=== PATIENT | male | born 1945 | race Caucasian/White ===

== ENCOUNTER 2017-06-18 04:03 | Observation (INO) | payer OTHER, MEDICARE ==
[~2017-06-18] VITALS: Ht 182.9 cm; Wt 130.2 kg
[2017-06-18 06:55] LABS: EOSINOPHIL (%) 7.3 % (0-5); EOSINOPHIL COUNT 0.4 K/uL (0-0.3); HEMATOCRIT 33.5 % (38.0-50.0); IMMATURE GRANULOCYTE (%) 0.3 % (0.0-0.7); INSTRUMENT ABS NEUTROPHIL CT 3.6 K/uL; LYMPHOCYTE COUNT 1.2 K/uL (1.0-2.8); MCHC 32.2 G/DL (30.0-36.0); MCV 99.4 FL (86-99); MEAN PLAT.VOLUME 9.1 uM^3 (9.0-12.4); MONOCYTE (%) 8.9 % (3-12); MONOCYTE COUNT 0.5 K/uL (0-0.8); NEUTROPHIL (%) 61.9 % (45-76); NEUTROPHIL COUNT 3.6 K/uL (1.8-6.4); PLATELET COUNT 210 K/uL (156-360); RBC DIS.WIDTH-CV 12.9 % (11.8-14.6); RBC DIS.WIDTH-SD 46.6 % (39-53); RED BLOOD COUNT 3.37 M/uL (4.00-5.50); WHITE BLOOD COUNT 5.7 K/uL (4.1-10.2)
[2017-06-18 07:31] LABS: ANION GAP 8 MEQ/L (2-14); CHLORIDE 106 MEQ/L (99-109); POTASSIUM 3.5 MEQ/L (3.7-5.4); SAMPLE HEMOLYSIS CHECK 0; SAMPLE ICTERIC CHECK 0; SAMPLE LIPEMIA CHECK 0; SODIUM 141 MEQ/L (136-147)
[2017-06-18 07:36] LABS: GFR ESTIMATE (CALCULATED) > 59 mL/min/; GLUCOSE 109 mg/dL (70-99); UREA NITROGEN (BUN) 21 mg/dL (9-23)
[2017-06-18] MEDS ORDERED: IBUPROFEN800 MG PO (09:27)
[2017-06-18] MEDS ORDERED: ATORVASTATIN CA40 MG PO (09:28)
[2017-06-18] MEDS ORDERED: LOPRESSOR25 MG PO (09:28)
[2017-06-18] MEDS ORDERED: HYDROCODON-ACE1 EAC8 PO (09:28)
[2017-06-18] MEDS ORDERED: LO-DOSE ASPIRIN81 M2 PO (09:29)
[2017-06-18] MEDS ORDERED: TRIAMTERENE-HC1 EACH PO (09:29)
[2017-06-18 11:17] VITALS: BP 137/65
[2017-06-18 15:57] VITALS: BP 131/61
[2017-06-19 00:19] VITALS: BP 129/60
[2017-06-19 04:00] VITALS: BP 137/63
[2017-06-19 05:23] LABS: HEMATOCRIT 35.3 % (38.0-50.0); MCH 31.4 PG (29.0-34.0); MCHC 31.4 G/DL (30.0-36.0); MCV 99.7 FL (86-99); MEAN PLAT.VOLUME 9.4 uM^3 (9.0-12.4); PLATELET COUNT 241 K/uL (156-360); RBC DIS.WIDTH-CV 12.7 % (11.8-14.6); RBC DIS.WIDTH-SD 47.1 % (39-53); RED BLOOD COUNT 3.54 M/uL (4.00-5.50); WHITE BLOOD COUNT 5.1 K/uL (4.1-10.2)
[2017-06-19 05:58] LABS: INTER. NORMALIZED RATIO 1.2; PROTHROMBIN TIME 13.5 SEC (10.2-12.9)
[2017-06-19 06:01] LABS: PTT 29.6 SEC (25-37)
[2017-06-19 06:02] LABS: ANION GAP 5 MEQ/L (2-14); CHLORIDE 109 MEQ/L (99-109); GFR ESTIMATE (CALCULATED) > 59 mL/min/; GLUCOSE 156 mg/dL (70-99); SAMPLE HEMOLYSIS CHECK 1; SAMPLE ICTERIC CHECK 0; SAMPLE LIPEMIA CHECK 0; SODIUM 142 MEQ/L (136-147); UREA NITROGEN (BUN) 18 mg/dL (9-23)
[2017-06-19 06:03] LABS: POTASSIUM 4.8 MEQ/L (3.7-5.4)
[2017-06-19 07:12] LABS: POTASSIUM 4.4 MEQ/L (3.7-5.4)
[2017-06-19 09:07] VITALS: BP 133/63
[2017-06-19 11:21] VITALS: BP 132/62
[2017-06-19] MEDS ORDERED: TAMSULOSIN HCL0.4 MG PO (14:09)
[2017-06-19] MEDS ORDERED: FINASTERIDE5 MG PO (14:10)
[2017-06-19 14:57] VITALS: BP 131/73
[2017-06-20] MEDS ORDERED: CIPRO500 MG PO (22:32)
== END 2017-06-19 16:15 | disposition home or self-care (01) ==
LOC: EME 04:03 → 5WEST 09:18 → EDOF 09:18 → ENRESERV 09:20 → CANRESERV 09:20 → EDOF 09:52 → ENRESERV 09:54 → 5WEST 11:10 → ENPENDDIS 06-19 → 5WEST 06-19 16:15
PROVIDERS: Emergency Medicine; Internal Medicine
DX: N40.1 Benign prostatic hyperplasia with lower urinary tract symptoms (principal); R33.8 Other retention of urine; R31.0 Gross hematuria; Z90.79 Acquired absence of other genital organ(s); G89.29 Other chronic pain; M54.5 Low back pain; I10 Essential (primary) hypertension; E78.5 Hyperlipidemia, unspecified; N28.1 Cyst of kidney, acquired; D64.9 Anemia, unspecified; E87.1 Hypo-osmolality and hyponatremia; Z96.659 Presence of unspecified artificial knee joint; F17.200 Nicotine dependence, unspecified, uncomplicated; Z79.82 Long term (current) use of aspirin
CPT/HCPCS: 74177; 80048; 81003; 84999; 85025; 85027; 85610; 85730; 86850; 86900; 86901; 99281; 99285; G0378; J1170; J2270; J2930; J3010; J3475; J7040

== ENCOUNTER 2017-06-20 19:02 | Emergency (ER) | payer OTHER, MEDICARE ==
[~2017-06-20] VITALS: Ht 182.9 cm; Wt 60.2 kg
[~2017-06-20 19:02] MED LIST: ATORVASTATIN CA40 MG PO; FINASTERIDE5 MG PO; HYDROCODON-ACE1 EAC8 PO; IBUPROFEN800 MG PO; LO-DOSE ASPIRIN81 M2 PO; LOPRESSOR25 MG PO; TAMSULOSIN HCL0.4 MG PO; TRIAMTERENE-HC1 EACH PO
[2017-06-20 21:37] LABS: HEMATOCRIT 34.7 % (38.0-50.0); MCH 31.9 PG (29.0-34.0); MCHC 31.7 G/DL (30.0-36.0); MCV 100.6 FL (86-99); MEAN PLAT.VOLUME 9.1 uM^3 (9.0-12.4); PLATELET COUNT 208 K/uL (156-360); RBC DIS.WIDTH-SD 48.3 % (39-53); RED BLOOD COUNT 3.45 M/uL (4.00-5.50); WHITE BLOOD COUNT 8.9 K/uL (4.1-10.2)
[2017-06-20 21:46] LABS: CHLORIDE 107 mEq/L (99-109); SODIUM 144 mEq/L (136-147)
[2017-06-20 21:48] LABS: GLUCOSE 101 mg/dL (70-99); POTASSIUM 3.4 mEq/L (3.7-5.4)
[2017-06-20 21:49] LABS: ANION GAP 11 MEQ/L (2-14)
[2017-06-20 21:51] LABS: GFR ESTIMATE (CALCULATED) > 59 mL/min/
[2017-06-20 21:52] LABS: UREA NITROGEN (BUN) 21 mg/dL (9-23)
[2017-06-20 21:54] LABS: CREATINE KINASE 39 IU/L (1-294); TOTAL CK 39 IU/L (1-294)
[2017-06-20 21:59] LABS: CK-MB 0.6 ng/mL (0.0-4.9)
[2017-06-20 22:06] LABS: ADD MIUA? YES; BILIRUBIN NEGATIVE; BLOOD LARGE; GLUCOSE (STRIP) NEGATIVE; KETONES NEGATIVE; LEUKOCYTES LARGE; NITRITE NEGATIVE; PROTEIN (STRIP) >=500; UROBILINOGEN 0.2 MG/DL (0.2-1.0)
[2017-06-20 22:08] LABS: COLOR AMBER ((YELLOW))
[2017-06-20 22:24] LABS: RED BLOOD CELLS TNTC /HPF (0-5); WHITE BLOOD CELLS TNTC /HPF (0-5)
[2017-06-20 22:25] LABS: BACTERIA NONE SEEN /HPF; CASTS NONE SEEN /LPF; CRYSTALS NONE SEEN; EPITHELIAL CELLS NONE SEEN /HPF; MUCUS NONE SEEN /LPF; UCUL ADDED? YES
[2017-06-20] MEDS ORDERED: CIPRO500 MG PO (22:32)
[2017-06-21 00:15] VITALS: BP 131/64
== END 2017-06-21 00:16 | disposition home or self-care (01) ==
LOC: EME 19:02
PROVIDERS: Emergency Medicine
PROC: 0T2BX0Z Change Drainage Device in Bladder, External Approach (ICD-10-PCS; principal; 2017-06-20)
DX: T83.031A Leakage of indwelling urethral catheter, initial encounter (principal); N39.0 Urinary tract infection, site not specified; R31.9 Hematuria, unspecified; I10 Essential (primary) hypertension; I25.2 Old myocardial infarction; Z87.442 Personal history of urinary calculi; F17.200 Nicotine dependence, unspecified, uncomplicated
CPT/HCPCS: 80048; 81003; 82550; 82553; 85027; 87086; 99281; 99284

== ENCOUNTER 2017-09-21 09:06 | Day surgery (SDC) | payer OTHER, MEDICARE ==
[~2017-09-21] VITALS: Ht 182.9 cm; Wt 133.0 kg
[~2017-09-21 09:06] MED LIST changes: +CIPRO500 MG PO
[2017-09-21] MEDS ORDERED: ASPIR 8181 M1 PO (09:17)
[2017-09-21] MEDS ORDERED: DAILY MULTIPLE1 EACH PO (09:17)
[2017-09-21 10:27] VITALS: BP 164/77
[2017-09-21 10:29] LABS: BASOPHIL (%) 0.4 % (0-1); EOSINOPHIL (%) 4.3 % (0-5); EOSINOPHIL COUNT 0.3 K/uL (0-0.3); HEMATOCRIT 41.3 % (38.0-50.0); HEMOGLOBIN 13.6 G/DL (12.5-16.6); IMMATURE GRANULOCYTE (%) 0.3 % (0.0-0.7); LYMPHOCYTE (%) 20.1 % (15-42); LYMPHOCYTE COUNT 1.4 K/uL (1.0-2.8); MCH 30.5 PG (29.0-34.0); MCHC 32.9 G/DL (30.0-36.0); MCV 92.6 FL (86-99); MONOCYTE (%) 6.8 % (3-12); MONOCYTE COUNT 0.5 K/uL (0-0.8); NEUTROPHIL (%) 68.1 % (45-76); NEUTROPHIL COUNT 4.6 K/uL (1.8-6.4); PLATELET COUNT 243 K/uL (156-360); RBC DIS.WIDTH-CV 14.7 % (11.8-14.6); RBC DIS.WIDTH-SD 50.5 % (39-53); RED BLOOD COUNT 4.46 M/uL (4.00-5.50); WHITE BLOOD COUNT 6.8 K/uL (4.1-10.2)
[2017-09-21 10:40] LABS: CHLORIDE 105 mEq/L (99-109); POTASSIUM 4.1 mEq/L (3.7-5.4); SODIUM 141 mEq/L (136-147)
[2017-09-21 10:42] LABS: GLUCOSE 95 mg/dL (70-99)
[2017-09-21 10:46] LABS: CREATININE 0.8 mg/dL (0.6-1.3); GFR ESTIMATE (CALCULATED) > 59 mL/min/ (58.99-99999)
[2017-09-21 10:47] LABS: UREA NITROGEN (BUN) 13 mg/dL (9-23)
[2017-09-21 17:10] VITALS: BP 121/60
[2017-09-21 20:11] VITALS: BP 138/63
[2017-09-22 00:22] VITALS: BP 132/62
[2017-09-22 04:16] VITALS: BP 128/64
[2017-09-22 07:30] VITALS: BP 128/60
== END 2017-09-22 11:50 | disposition home or self-care (01) ==
LOC: SDC 09:06 → 2SOUTH 14:30 → ENRESERV 14:55 → 2EAST 17:04
PROVIDERS: Urology
DX: N40.0 Benign prostatic hyperplasia without lower urinary tract symptoms (principal); N30.91 Cystitis, unspecified with hematuria; N32.89 Other specified disorders of bladder; I10 Essential (primary) hypertension; I25.10 Atherosclerotic heart disease of native coronary artery without angina pectoris; Z95.1 Presence of aortocoronary bypass graft; Z96.653 Presence of artificial knee joint, bilateral; F17.210 Nicotine dependence, cigarettes, uncomplicated
CPT/HCPCS: 80048; 85025; 86850; 86900; 86901; 88305; 88312; 93005; G0378; J0690; J1650; J2250; J2405; J3010; J7120

== ENCOUNTER 2017-09-23 13:14 | Emergency (ER) | payer OTHER, MEDICARE ==
[~2017-09-23] VITALS: Ht 182.9 cm; Wt 133.7 kg
[~2017-09-23 13:14] MED LIST changes: +ASPIR 8181 M1 PO; +DAILY MULTIPLE1 EACH PO
[2017-09-23 16:21] VITALS: BP 159/115
== END 2017-09-23 15:45 | disposition home or self-care (01) ==
LOC: EME 13:14
DX: T83.098A Other mechanical complication of other urinary catheter, initial encounter (principal); R31.9 Hematuria, unspecified; Z98.890 Other specified postprocedural states; I10 Essential (primary) hypertension; Z87.442 Personal history of urinary calculi; Z79.82 Long term (current) use of aspirin; F17.200 Nicotine dependence, unspecified, uncomplicated
CPT/HCPCS: 99281; 99284